=== PATIENT | female | born 1980 | race Two or more races ===

== ENCOUNTER → 2024-06-10 | Outpatient (CLI) | payer MEDICAID, SELFPAY ==
--- NOTE | 2024-06-10 | XR_ITS ---
Examination: Chest PA lateral 2 views TECHNIQUE: Upright PA lateral chest 2 views Exam date and time: June 10, 2024 12:53 PM INDICATIONS: Coughing beginning 3 months ago. FINDINGS: Normal heart size Lungs are clear. The osseous structures are intact IMPRESSION: No active disease
== END | disposition home or self-care (01) ==
PROVIDERS: PCP Nurse Practitioner Family; Referring Provider Nurse Practitioner Family; Visit Provider Nurse Practitioner Family
DX: R05.9 Cough, unspecified (principal)
CPT/HCPCS: 71046

== ENCOUNTER → 2024-12-13 | Outpatient (CLI) | payer MEDICAID, SELFPAY ==
--- NOTE | 2024-12-13 10:37 | XR_ITS ---
Examination: Shoulder bilateral, 6 views Technique: Shoulder AP internal rotation, AP external rotation, Y view each shoulder total 6 views Exam date and time :December 13, 2024 11:01 AM INDICATIONS: Bilateral shoulder pain beginning 3 weeks ago. FINDINGS: Bilateral mild narrowing glenohumeral joints Minimal left and moderate right shoulder calcific tendinitis No fractures or shoulder dislocation IMPRESSION: Minimal left and moderate right shoulder calcific tendinitis
== END | disposition home or self-care (01) ==
PROVIDERS: PCP Nurse Practitioner Family; Referring Provider Nurse Practitioner Family; Visit Provider Nurse Practitioner Family
DX: M75.31 Calcific tendinitis of right shoulder (principal)
CPT/HCPCS: 73030